=== PATIENT | female | born 1955 | race Caucasian/White ===

== ENCOUNTER 2021-07-26 17:34 | Emergency (ER) | payer OTHER | END 2021-07-26 23:30 | disposition short-term general hospital (02) | LOC: ER1 17:34 | DX: K85.90 Acute pancreatitis without necrosis or infection, unspecified (principal); I10 Essential (primary) hypertension; F17.210 Nicotine dependence, cigarettes, uncomplicated | CPT/HCPCS: 99283 ==

== ENCOUNTER → 2021-07-26 | Outpatient (CLI) | payer OTHER ==
[~2021-07-26] MED LIST: CELEBREX200 MG PO; LISINOPRIL40 MG PO; NORCO 7.5-3251 EACH PO; NORVASC 5 MG TAB5 MG PO
[2021-07-26 12:04] LABS: HEMOGLOBIN 14.9 gm/dl (12.3-15.3); RED BLOOD COUNT 4.96 M/UL (4.00-5.10); WHITE BLOOD COUNT 14.9 K/UL (4.5-11.0)
[2021-07-26 12:32] LABS: BUN/CREATININE RATIO 12 (0-10)
== END ==
LOC: CT 11:38
PROVIDERS: Nurse Practitioner Family
DX: R10.9 Unspecified abdominal pain (principal); R10.829 Rebound abdominal tenderness, unspecified site; R19.8 Other specified symptoms and signs involving the digestive system and abdomen
CPT/HCPCS: 36415; 80053; 82150; 83690; 85025; Q9967

== ENCOUNTER → 2021-10-04 | Outpatient (CLI) | payer OTHER | LOC: MAMO 10:27 | DX: Z12.31 Encounter for screening mammogram for malignant neoplasm of breast (principal) | CPT/HCPCS: 77063; 77067 ==